=== PATIENT | male | born 1965 | race African-American/Black ===

== ENCOUNTER 2023-11-28 10:53 | Inpatient (IN) | payer BC ==
[2023-11-28 12:02] LABS: #Eosinphils 0.2 thou/uL (0.0-0.7); #Monocytes 0.9 thou/uL (0.11-0.59); #Neutrophils 5.4 thou/uL (1.40-6.50); %Basophils 0.5 % (0.0-1.0); %Eosinophils 1.9 % (0.0-10.0); %Lymphocytes 20.1 % (21.0-51.0); %Neutrophils 66.4 % (42.0-75.0); Hematocrit 36.6 % (42.0-52.0); Hemoglobin 11.8 g/dL (14.0-18.0); Mean Corpuscular HGB CONC 32.2 g/dL (32.0-36.0); Mean Corpuscular Hemoglobin 29.1 pg (27.0-31.0); Mean Corpuscular Volume 90.4 fl (78.0-98.0); Mean Platelet Volume 10.3 fL (7.4-10.4); Platelet Count 260 10x3/uL (130-400); RBC Distribution Width 12.5 % (11.5-14.5); Red Blood Cell (RBC) Count 4.05 mill/uL (4.70-6.10); White Blood Cell (WBC) Count 8.1 10x3/uL (4.8-10.8)
[2023-11-28 12:20] LABS: Troponin I 0.181 ng/mL (< 0.028)
[2023-11-28 12:21] LABS: ALT (SGPT) 25 U/L (8-55); AST (SGOT) 21 U/L (5-34); Albumin 3.6 g/dL (3.5-5.0); Alkaline Phosphatase 79 U/L (40-110); Anion Gap 10 mmol/L (10-20); BUN (Urea Nitrogen) 13 mg/dL (8.4-25.7); Bilirubin, Total 0.9 mg/dL (0.2-1.2); Calc. Creatinine Clearance 0 mL/min (70-130); Carbon Dioxide 25 mmol/L (22-29); Chloride 101 mmol/L (98-107); Estimated GFR 65; Globulin 2.8 g/dL (2.4-3.5); Glucose 305 mg/dL (70-105); Potassium 4.4 mmol/L (3.5-5.1); Protein, Total 6.4 g/dL (6.0-8.3); Sodium 132 mmol/L (136-145)
[2023-11-28 13:18] LABS: Magnesium 1.9 mg/dL (1.6-2.6)
[2023-11-28] MEDS ORDERED: Aspirin Chewable 81 MG TAB ONE (13:36)
[2023-11-28] MEDS ORDERED: Furosemide 40 MG (4 mL) VIAL ONE (13:37)
[2023-11-28 14:36] LABS: Troponin I 0.197 ng/mL (< 0.028)
[2023-11-28 16:39] VITALS: BMI 36.4
[2023-11-28 18:43] LABS: Critical Call Chem Troponin I NUR.JH15@1843; Troponin I 0.213 ng/mL (< 0.028)
[2023-11-28] MEDS ORDERED: HumaLOG 300 UNITS/3 ML VIAL SC PRN ×2 (20:07)
[2023-11-28] MEDS ORDERED: Dextrose 50% Abboject 50 ML SYRINGE SLOW IVP PRN (20:07)
[2023-11-28] MEDS ORDERED: Dextrose 5% in Water 1,000 ML IV PRN (20:07)
[2023-11-28] MEDS ORDERED: Glucagon 1 MG/ML KIT IM PRN (20:07)
[2023-11-28] MEDS: Atorvastatin Calcium 40 MG TAB PO SCH (22:28)
[2023-11-28] MEDS: Carvedilol 25 MG TAB PO SCH (22:28)
[2023-11-28 22:55] LABS: Troponin I 0.176 ng/mL (< 0.028)
[2023-11-28] MEDS: HumuLIN 70/30 (300 UNITS/3 ML VIAL) SC SCH (23:37)
[2023-11-29 04:28] LABS: #Basophils 0.1 thou/uL (0.0-0.2); #Eosinphils 0.2 thou/uL (0.0-0.7); #Neutrophils 5.3 thou/uL (1.40-6.50); %Basophils 0.6 % (0.0-1.0); %Eosinophils 2.1 % (0.0-10.0); %Lymphocytes 21.5 % (21.0-51.0); %Monocytes 11.6 % (0.0-10.0); %Neutrophils 64.1 % (42.0-75.0); Hematocrit 35.5 % (42.0-52.0); Hemoglobin 11.8 g/dL (14.0-18.0); Mean Corpuscular HGB CONC 33.2 g/dL (32.0-36.0); Mean Corpuscular Hemoglobin 29.6 pg (27.0-31.0); Mean Corpuscular Volume 89.2 fl (78.0-98.0); Mean Platelet Volume 10.4 fL (7.4-10.4); Platelet Count 250 10x3/uL (130-400); RBC Distribution Width 12.5 % (11.5-14.5); Red Blood Cell (RBC) Count 3.98 mill/uL (4.70-6.10); White Blood Cell (WBC) Count 8.3 10x3/uL (4.8-10.8)
[2023-11-29 04:59] LABS: Albumin 3.4 g/dL (3.5-5.0); Anion Gap 11 mmol/L (10-20); BUN (Urea Nitrogen) 12 mg/dL (8.4-25.7); BUN/Creatinine Ratio 11.22; Calc. Creatinine Clearance 133 mL/min (70-130); Calcium 8.8 mg/dL (7.8-10.44); Carbon Dioxide 23 mmol/L (22-29); Cardiac Risk 4.3 (Less than 4.5); Chloride 105 mmol/L (98-107); Cholesterol 155 mg/dl (< 200 Desired); Estimated GFR 81; Glucose 97 mg/dL (70-105); HDL Cholesterol 36 mg/dL (>60 Neg Risk); LDL Cholesterol, Calculated 104 mg/dL; Magnesium 1.7 mg/dL (1.6-2.6); Phosphorus 2.4 mg/dL (2.3-4.7); Potassium 3.4 mmol/L (3.5-5.1); Sodium 136 mmol/L (136-145); Triglycerides 73 mg/dL (Less than 150)
[2023-11-29] MEDS ORDERED: Lactated Ringer's 1,000 ML IV SCH (07:00)
[2023-11-29] MEDS ORDERED: Empagliflozin 10 MG TAB PO SCH (09:00)
[2023-11-29] MEDS: Potassium Chloride 20 MEQ TAB PO SCH (09:19)
[2023-11-29] MEDS: Enoxaparin 40 MG (0.4 mL) SYRINGE SC SCH (09:20)
[2023-11-29] MEDS: Aspirin 81 mg Enteric Coated Tablet PO SCH (09:20)
[2023-11-29] MEDS: DULoxetine 30 MG CAP PO SCH (09:20)
[2023-11-29] MEDS: glipiZIDE 5 MG TAB PO SCH (09:20)
[2023-11-29] MEDS: Gabapentin 300 MG CAP PO SCH (09:21)
[2023-11-29] MEDS: Spironolactone 25 MG TAB PO SCH (09:21)
[2023-11-29] MEDS: Lisinopril 20 MG TAB PO SCH (09:21)
[2023-11-29] MEDS: Furosemide 40 MG TAB PO SCH (09:25)
[2023-11-29 16:42] VITALS: TEMP 97.8
[2023-11-29 17:09] VITALS: BP 142/97
== END 2023-11-29 18:25 | disposition home or self-care (01) | DRG 280 ==
LOC: ERS 10:53 → ERHOLD 15:49 → 2NO 15:54
PROVIDERS: ADMIT Internal Medicine; ATTEND Internal Medicine
DX: I11.0 Hypertensive heart disease with heart failure (principal); I50.23 Acute on chronic systolic (congestive) heart failure; I21.A1 Myocardial infarction type 2; I42.8 Other cardiomyopathies; Z79.4 Long term (current) use of insulin; Z79.899 Other long term (current) drug therapy; E78.00 Pure hypercholesterolemia, unspecified; Z90.49 Acquired absence of other specified parts of digestive tract; E11.9 Type 2 diabetes mellitus without complications; Z79.82 Long term (current) use of aspirin
CPT/HCPCS: 36415; 36416; 71046; 80053; 80061; 80069; 82570; 83735; 83880; 84156; 84443; 84484; 85025; 93005; 93306; 96374; J1650; J1815; J1940